=== PATIENT | male | born 1955 | race Caucasian/White ===

== ENCOUNTER 2016-07-08 11:33 | Emergency (ER) | payer MEDICAID | END 2016-07-08 13:14 | disposition home or self-care (01) | LOC: FASTR 11:33 | DX: S43.422A Sprain of left rotator cuff capsule, initial encounter (principal); W10.8XXA Fall (on) (from) other stairs and steps, initial encounter; Y92.009 Unspecified place in unspecified non-institutional (private) residence as the place of occurrence of the external cause; Z79.899 Other long term (current) drug therapy; Z87.891 Personal history of nicotine dependence; I10 Essential (primary) hypertension; Z85.038 Personal history of other malignant neoplasm of large intestine | CPT/HCPCS: 84484; 93005 ==